=== PATIENT | male | born 1995 | race Caucasian/White ===

== ENCOUNTER 2018-10-27 21:46 | Emergency (ER) | payer BC ==
[2018-10-28] MEDS ORDERED: Cephalexin CAP* 500 MG PO ONE (00:44)
--- NOTE | 2018-10-28 00:44 | ED ---
Laceration/Wound HPI - HPI Summary HPI Summary: 23-year-old male presents with laceration to right fifth toe. He states that he was walking and jammed his toe. Area is not actively bleeding. Laceration is between the webbing of the fourth and fifth toe. No numbness or tingling. No previous fracture the area. Tetanus up-to-date. Has no medical conditions. - History of Current Complaint Stated Complaint: R FOOT LAC Time Seen by Provider: 10/27/18 23:49 Pain Intensity: 1 - Allergy/Home Medications Allergies/Adverse Reactions: Allergies Allergy/AdvReac Type Severity Reaction Status Date / Time pistachio nut Allergy Anaphylatic Verified 10/27/18 21:52 Shock [place] Allergy Edema Uncoded 10/27/18 21:52 PMH/Surg Hx/FS Hx/Imm Hx Endocrine/Hematology History: Denies: Hx Anticoagulant Therapy Cardiovascular History: Denies: Hx Myocardial Infarction Infectious Disease History: No Infectious Disease History: Denies: Traveled Outside the [place] in Last 30 Days - Family History Known Family History: Positive: Non-Contributory - Social History Alcohol Use: Occasionally Substance Use Type: Reports: None Smoking Status (MU): Never Smoked Tobacco Review of Systems Negative: Fever Negative: Chest Pain Negative: Shortness Of Breath Positive: Myalgia - laceration right 5th toe All Other Systems Reviewed And Are Negative: Yes Physical Exam Triage Information Reviewed: Yes Vital Signs On Initial Exam: Initial Vitals Temp Pulse Resp BP Pulse Ox 99.6 F 92 18 147/85 97 10/27/18 21:50 10/27/18 21:50 10/27/18 21:50 10/27/18 21:50 10/27/18 21:50 Vital Signs Reviewed: Yes Appearance: Positive: Well-Appearing Skin: Positive: Warm, Dry, Other - 3cm by 1/2cm by 1cm laceration between webbing of right 5th and 4th toe Head/Face: Positive: Normal Head/Face Inspection Eyes: Positive: Normal, Conjunctiva Clear ENT: Positive: Pharynx normal Respiratory/Lung Sounds: Positive: Clear to Auscultation, Breath Sounds Present Cardiovascular: Positive: Normal, RRR Musculoskeletal: Positive: Strength/ROM Intact - right foot, Other - capillary refill<2secs Neurological: Positive: Normal Psychiatric: Positive: Normal Procedures - Laceration/Wound Repair 1 Location: Other - right 5th toe webbing Description: Irregular Anesthesia: Local, 1.0%, Epi Length, Depth and Shape: 3cm by 1cm by 1/2cm Irrigated w/ Saline (ccs): 500 Closure: Single Layer Suture Type: Prolene Number of Sutures: 4 Sterile Dressing Applied?: No - telfa and wing tapped Diagnostics - Vital Signs Vital Signs Temp Pulse Resp BP Pulse Ox 10/27/18 21:50 99.6 F 92 18 147/85 97 - Laboratory Lab Statement: Any lab studies that have been ordered have been reviewed, and results considered in the medical decision making process. Laceration Repair Course/Dx - Course Course Of Treatment: 23-year-old male presents with laceration to right fifth toe. He states that he was walking and jammed his toe. Area is not actively bleeding. Laceration is between the webbing of the fourth and fifth toe. No numbness or tingling. No previous fracture the area. Tetanus up-to-date. Has no medical conditions. On exam has 3 cm by 1cm by 1/2cm between webbing of fourth and fifth toe. Cleaned area and placed 4 sutures. Due to location and not able to completely approximate the wound due to the location we'll place on Keflex. Told to keep the area wing tapped. Warned if develop any signs of infection to return. Patient understands agrees with plan. - Differential Dx Differental Diagnoses: Abrasion, Avulsion, Laceration - Clinical Impression Provider Diagnoses: Toe laceration Discharge - Sign-Out/Discharge Documenting (check all that apply): Patient Departure Patient Received Moderate/Deep Sedation with Procedure: No - Discharge Plan Condition: Good Disposition: HOME Prescriptions: Cephalexin CAP* [Keflex CAP*] 500 mg PO BID #9 cap Patient Education Materials: Care For Your Stitches (ED) Referrals: No Primary Care Phys,NOPCP [Primary Care Provider] - Additional Instructions: Take Keflex twice a day for 5 days wing tape toes daily until suture removed, change dressing daily Keep area clean and dry for 25 hours, do not soak area Take Tylenol or ibuprofen for pain every 6 hours Return to ED or urgent care for suture removal in 8-10 days Follow up with ortho Return to ED if develop signs of infection such as fever, spreading redness, or pus formation - Billing Disposition and Condition Condition: GOOD Disposition: Home
== END 2018-10-28 01:06 | disposition home or self-care (01) ==
LOC: ED 21:46
DX: S91.114A Laceration without foreign body of right lesser toe(s) without damage to nail, initial encounter (principal); W23.0XXA Caught, crushed, jammed, or pinched between moving objects, initial encounter; Y93.01 Activity, walking, marching and hiking; Y92.9 Unspecified place or not applicable
CPT/HCPCS: 12002; 99282; A9270-GY